=== PATIENT | male | born 1995 | race Caucasian/White ===

== ENCOUNTER 2022-01-17 16:19 | Emergency (ER) | payer BC, SELFPAY ==
[2022-01-17 16:35] VITALS: BP 138/80; PULSE 94
[2022-01-17 16:36] VITALS: BP 128/77; PULSE 101; RESP 24; TEMP 36.7; O2SAT 96; BMI 28.8
--- NOTE | 2022-01-17 16:47 | ED.ABDPAIN ---
HPI - Abdominal Pain General Chief Complaint: Abdominal Pain <Gabriel Thompson MD - Last Filed: 01/17/22 16:48> Stated Complaint: Stomach Pain <Gabriel Thompson MD - Last Filed: 01/17/22 16:48> Time Seen by Provider: 01/17/22 18:17 <Gabriel Thompson MD - Last Filed: 01/17/22 16:48> Source: patient <BEVERLY Cedeno - Last Filed: 01/17/22 18:34> Mode of arrival: ambulatory <BEVERLY Cedeno - Last Filed: 01/17/22 18:34> Limitations: no limitations <BEVERLY Cedeno - Last Filed: 01/17/22 18:34> History of Present Illness HPI narrative: 26-year-old male presenting to the ED with complaints of abdominal pain after eating half a bottle of hot sauce on his burger that his co-worker gave him [employer]. He reports 1 hour later after eating the hot sauce he started having severe abdominal cramping and unable to vomit then he dropped down to the floor due to his pain was so severe. He reports then shortly after he felt like he could not breathe and he reports ?I felt like I was giving to a baby?. He reports he feels completely better now. He is requesting to go home. He denies any symptoms at this time. <BEVERLY Cedeno - Last Filed: 01/17/22 18:34> MD elicited complaint: abdominal pain <BEVERLY Cedeno - Last Filed: 01/17/22 18:34> Onset (ago): hour(s) ([employer]) <BEVERLY Cedeno - Last Filed: 01/17/22 18:34> Pain Consistency: now resolved <BEVERLY Cedeno - Last Filed: 01/17/22 18:34> Location: diffuse <BEVERLY Cedeno - Last Filed: 01/17/22 18:34> Severity: severe <BEVERLY Cedeno - Last Filed: 01/17/22 18:34> Quality: cramping <BEVERLY Cedeno Last Filed: 01/17/22 18:34> Radiation: none <BEVERLY Cedeno - Last Filed: 01/17/22 18:34> Migration to: no migration <BEVERLY Cedeno - Last Filed: 01/17/22 18:34> Exacerbating factors: nothing <BEVERLY Cedeno - Last Filed: 01/17/22 18:34> Relieving factors: nothing <BEVERLY Cedeno - Last Filed: 01/17/22 18:34> Context: other (See above) <BEVERLY Cedeno - Last Filed: 01/17/22 18:34> Associated symptoms: nausea and other (SOB) <BEVERLY Cedeno - Last Filed: 01/17/22 18:34> Related Data Home Medications: Previous Rx's Medication Instructions Recorded ondansetron 4 mg disintegrating 4 mg PO Q8H #14 tabs 01/17/22 tablet <Gabriel Thompson MD - Last Filed: 01/17/22 16:48> Allergies/Adverse Reactions: Allergies Allergy/AdvReac Type Severity Reaction Status Date / Time No Known Allergies Allergy Verified 01/17/22 16:46 <Gabriel Thompson MD - Last Filed: 01/17/22 16:48> Review of Systems Review of Systems Constitutional : No Weight loss, No Fever, No Chills, No Night Sweats, No Fatigue, No Malaise ENT/Mouth : No Hearing loss, No Ear Pain, No Nasal Congestion, No Sinus Pain, No Hoarseness, No sore throat, No Rhinorrhea, No Swallowing Difficulty Eyes: No Eye Pain, No Swelling, No Redness, No Foreign Body, No Discharge, No Vision Changes Cardiovascular : No Chest Pain, + SOB, No Dyspnea on Exertion, No Orthopnea, No Edema, No Palpitations Respiratory : No Cough, No Sputum, No Wheezing, No Smoke Exposure, No Dyspnea Gastrointestinal : + Nausea, No Vomiting, No Diarrhea, No Constipation, + abdominal Pain, No Hematochezia, No Melena Genitourinary : no irregular bleeding, No Dysuria, No Urinary Frequency, No Hematuria, No Urinary Incontinence, No Urgency, No Flank Pain, No Urinary Flow Changes, No Hesitancy Musculoskeletal : No joint pain, No Myalgias, No Joint Swelling Skin : No Skin Lesions, No rash Neuro : No Weakness, No Numbness, No Paresthesias, No Loss of Consciousness, No Dizziness, No Headache Psych : No Anxiety/Panic, No Depression, No SI/HI/AH/VH, No Social Issues, Heme/Lymph: No Bruising, No Bleeding,No Lymphadenopathy Endocrine : No Polyuria, No Polydipsia, No Temperature Intolerance <BEVERLY Cedeno - Last Filed: 01/17/22 18:34> Yes all other systems are reviewed and are negative <BEVERLY Cedeno - Last Filed: 01/17/22 18:34> [facility] Past Medical History Attestation statement: The following information was validated with the patient. <BEVERLY Cedeno - Last Filed: 01/17/22 18:34> Source: old records reviewed and nursing notes reviewed <BEVERLY Ceedno - Last Filed: 01/17/22 18:34> Social History Social History: Social History Advance Directives: No Advance Directives Information Provided: No <Gabriel Thompson MD - Last Filed: 01/17/22 16:48> Physical Exam ED Vital Signs: Vital Signs - 24 hr 01/17/22 16:36 Temperature 98.0 F Pulse Rate 101 H Respiratory Rate 24 H Blood Pressure 128/77 Pulse Oximetry 96 Oxygen Delivery Method Room Air BMI result Body Mass Index 28.8 <Gabriel Thompson MD - Last Filed: 01/17/22 16:48> Vital Signs - 24 hr 01/17/22 16:36 Temperature 98.0 F Pulse Rate 101 H Respiratory Rate 24 H Blood Pressure 128/77 Pulse Oximetry 96 Oxygen Delivery Method Room Air BMI result Body Mass Index 28.8 Vital signs have been reviewed and all within normal limits <BEVERLY Cedeno - Last Filed: 01/17/22 18:34> Appearance: Alert. Oriented X3. No acute distress. Head: Normal external exam. Normocephalic. Eyes: PERRLA. EOMI. Conjunctiva and sclera normal. Eyelids normal. ENT: Pharynx normal. Uvula midline. Moist mucous membranes. No trismus noted. No drooling noted. No muffled voice noted. Neck: Normal inspection. Neck supple. FROM. No adenopathy. No meningeal signs. CVS: Normal heart rate and rhythm. Heart sound normal. No murmurs noted. Pulses normal throughout. Respiratory: No respiratory distress. Painless inspiration. Breath sounds normal. No wheezes/rales/rhonchi noted. Chest nontender. No accessory muscle usage noted or decreased air movement noted. Abdomen: Soft and nontender. Nondistended. No guarding. No rigidity. Bowel sounds normal in all 4 quadrants. No distention noted. No organomegaly noted. No visible injury noted. No rebound tenderness. Negative Rovsing sign. Negative obturator's sign. Negative psoas sign. Negative Mancilla sign. Back: No CVA tenderness. Full range of motion noted. Skin: Skin warm and dry. Normal skin color. Normal skin turgor. No rashes/lesions/lacerations noted. Extremities: Extremities exhibit normal range of motion. Extremities nontender. Neuro: Oriented X 3. No motor deficit. No sensory deficit. Reflexes normal. Normal steady gait. CN's II-XII intact bilaterally? <BEVERLY Cedeno - Last Filed: 01/17/22 18:34> Course Reevaluation(s) Reevaluation #1: Came in for evaluation of abdominal pain shortly after ate a burger [place] with hot sauce. <Gabriel Thompson MD - Last Filed: 01/17/22 16:48> Time: 16:47 <Gabriel Thompson MD - Last Filed: 01/17/22 16:48> Reevaluation #2: - patient denies any symptoms at this time. Reports that he wants to go home at this time he does not believe he needs any imaging or any labs. Therefore at this time will DC home with instructions return if any new or worsening symptoms follow up with primary care provider. Patient understands agrees with this plan. <BEVERLY Cedeno - Last Filed: 01/17/22 18:34> Time: 18:32 <BEVERLY Cedeno - Last Filed: 01/17/22 18:34> Medications Administered Discontinued Medications Generic Name Dose Route Start Last Admin Trade Name Freq PRN Reason Stop Dose Admin Al Hydroxide/Mg Hydroxide 30 ml 01/17/22 16:46 01/17/22 16:54 Magnesium Hydrox/Alum Hydrox 30 Ml Oral.Susp PO 01/17/22 16:47 30 ml ONCE ONE Administration Famotidine 20 mg 01/17/22 16:46 01/17/22 16:54 Famotidine 20 Mg Tablet PO 01/17/22 16:47 20 mg ONCE ONE Administration Lidocaine HCl 15 ml 01/17/22 16:46 01/17/22 16:54 Lidocaine Hcl Viscous 2 % 15 Ml Solution MUCOUS MEM 01/17/22 16:47 15 ml ONCE ONE Administration <Gabriel Thompson MD - Last Filed: 01/17/22 16:48> Medications Administered Discontinued Medications Generic Name Dose Route Start Last Admin Trade Name [place] PRN Reason Stop Dose Admin Al Hydroxide/Mg Hydroxide 30 ml 01/17/22 16:46 01/17/22 16:54 Magnesium Hydrox/Alum Hydrox 30 Ml Oral.Susp PO 01/17/22 16:47 30 ml ONCE ONE Administration Famotidine 20 mg 01/17/22 16:46 01/17/22 16:54 Famotidine 20 Mg Tablet PO 01/17/22 16:47 20 mg ONCE ONE Administration Lidocaine HCl 15 ml 01/17/22 16:46 01/17/22 16:54 Lidocaine Hcl Viscous 2 % 15 Ml Solution MUCOUS MEM 01/17/22 16:47 15 ml ONCE ONE Administration <BEVERLY Cedeno - Last Filed: 01/17/22 18:34> MDM - Abdominal Pain Medical Records Attestation: I reviewed the patient's medical records. <BEVERLY Cedeno - Last Filed: 01/17/22 18:34> Discharge Plan Discharge Clinical Impression: Abdominal pain <Gabriel Thompson MD - Last Filed: 01/17/22 16:48> Patient Disposition: Home, Self-Care <Gabriel Thompson MD - Last Filed: 01/17/22 16:48> Instructions: Acute Abdominal Pain (ED) <Gabriel Thompson MD - Last Filed: 01/17/22 16:48> Prescriptions: New ondansetron 4 mg tablet,disintegrating 4 mg PO Q8H Qty: 14 0RF <Gabriel Thompson MD - Last Filed: 01/17/22 16:48> Stand Alone Forms: Work/School Release <Gabriel Thompson MD - Last Filed: 01/17/22 16:48>
[2022-01-17] MEDS: Magnesium Hydrox/Alum Hydrox 30 ML ORAL.SUSP PO (16:54)
[2022-01-17] MEDS: Lidocaine HCl Viscous 2 % 15 ML SOLUTION MUCOUS MEM (16:54)
[2022-01-17] MEDS: Famotidine 20 MG TABLET PO (16:54)
== END 2022-01-17 18:41 | disposition home or self-care (01) ==
PROVIDERS: Emergency Provider Internal Medicine
DX: R10.9 Unspecified abdominal pain (principal)
CPT/HCPCS: 99282; 99283